=== PATIENT | male | born 1945 | race Caucasian/White ===

== ENCOUNTER 2018-11-07 09:55 | Inpatient (IN) | payer BC, OTHER ==
[~2018-11-07] VITALS: Ht 175.3 cm; Wt 90.5 kg
[~2018-11-07 09:55] MED LIST: AMLODIPINE BESY10 MG PO; CELEBREX 200 M200 MG PO; PERCOCET PO; PRILOSEC40 MG PO; SIMVASTATIN20 MG PO; THERA TEARS1 EAC1 OP; VITAMIN B-1100 M1 PO; VITAMIN D3400 UNI1 PO
[2018-11-07 10:05] VITALS: BP 124/68
[2018-11-07 10:55] LABS: HEMATOCRIT 45.2 % (42.0-52.0); MCH 32.2 pg (26.0-34.0); MCHC 35.3 g/dL (28.0-37.0); MCV 91.2 fL (80.0-100.0); PLATELET COUNT 269 thou/uL (150-400); RBC 4.96 mil/uL (4.50-6.00); WBC 8.4 thou/uL (4.0-11.0)
[2018-11-07 10:59] LABS: ANION GAP 10 mmol/L (7-16); BUN 30 mg/dL (7-18); CHLORIDE 93 mmol/L (98-107); CO2 29 mmol/L (21-32); CREATININE 1.5 mg/dL (0.7-1.3); GLUCOSE 128 mg/dL (74-106); SODIUM 132 mmol/L (136-145)
[2018-11-07 11:07] LABS: ALBUMIN 4.3 g/dL (3.4-5.0); SGOT 23 U/L (15-37); SGPT 31 U/L (30-65); TOTAL BILIRUBIN 1.1 mg/dL (<0.1-1.0); TOTAL PROTEIN 8.3 g/dL (6.4-8.2); TROPONIN-I <0.06 ng/mL (<0.06)
[2018-11-07 11:43] LABS: ABSOLUTE NEUTROPHILS 5.9 thou/uL (1.4-8.2)
[2018-11-07 11:44] LABS: PLATELET ESTIMATE NORMAL
[2018-11-07] MEDS ORDERED: LEVOXYL25 MCG PO (12:32)
[2018-11-07] MEDS ORDERED: SYNTHROID125 MC1 PO (13:05)
[2018-11-07] MEDS ORDERED: COZAAR 25 MG TA25 M1 PO ×2 (13:06→14:05)
[2018-11-07] MEDS ORDERED: ATORVASTATIN CA40 MG PO (13:06)
[2018-11-07] MEDS ORDERED: CHLORTHALIDONE25 MG PO (13:06)
[2018-11-07] MEDS ORDERED: UNISOM SLEEPMEL25 MG PO (13:09)
[2018-11-07] MEDS ORDERED: VALACYCLOVIR (13:10)
[2018-11-07 14:44] VITALS: BP 175/86
--- NOTE | 2018-11-07 18:05 | EKG ---
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 : 1945 Requested By: Lina Reyes Order Number: [id number] MD: Erik Hadley Measurements Intervals [place] Rate: 73 P: 2 SC: 185 QRS: -12 QRSD: 94 T: 4 QT: 426 QTc: 470 Interpretive Statements Sinus rhythm Poor R wave progression Compared to ECG 09/25/2007 22:14:14 No significant change was found Electronically Signed On 11-07-2018 18:05:17 CDT by Erik Hadley [email or web address] ��������������������������������������������� <ELECTRONICALLY SIGNED> ���������������������������������������� By: Erik Hadley MD, [facility] ��������������������������������������������� 11/07/18 1805 1047 104 Erik Hadley MD, [facility] /EPI
--- NOTE | 2018-11-07 18:05 | EKG ---
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1945 Requested By: Lina Reyes Order Number: [id number] MD: Erik Hadley Measurements Intervals [place] Rate: 72 P: 16 MI: 171 QRS: -16 QRSD: 104 T: 0 QT: 413 QTc: 453 Interpretive Statements Sinus rhythm Abnormal R-wave progression, late transition Compared to ECG 09/25/2007 22:14:14 Sinus bradycardia no longer present Electronically Signed On 11-07-2018 18:04:59 CDT by Erik Hadley [email or web address] ��������������������������������������������� <ELECTRONICALLY SIGNED> ���������������������������������������� By: Erik Hadley MD, [facility] ��������������������������������������������� 11/07/18 1804 1002 1002 Erik Hadley MD, [facility] /EPI
--- NOTE | 2018-11-07 19:27 | NUR ---
ADM PT CAME IN FROM ER. PT ORIENTED TO ROOM. PROVIDER NOTIFIED, AWAITING FOR CALLBACK FOR PAIN MEDS.
[2018-11-07 19:43] VITALS: BP 158/80
--- NOTE | 2018-11-08 01:00 | NUR ---
PT SLEPT MOST OF THE NIGHT PT HAD MILD TREMORS DURING THE NIGHT NO ISSUES OVERNIGHT.
[2018-11-08 04:25] LABS: CALCIUM 8.8 mg/dL (8.5-10.1); CREATININE 1.3 mg/dL (0.7-1.3)
[2018-11-08 05:02] VITALS: BP 155/83
[2018-11-08 08:01] VITALS: BP 123/70
[2018-11-08 14:06] LABS: HIV ANTIBODY Non Reactive (Non Reactive)
[2018-11-08 16:33] VITALS: BP 154/86
--- NOTE | 2018-11-08 17:09 | NUR ---
ON-GOING ASSESSMENT: CM REVIEWED CHART AND MET WITH PATIENT AT THE BEDSIDE. PT REPORTS LIVING IN A HOUSE INDEPENDENTLY. PT REPORTS HE IS INDEPENDENT WITH ADLS AND AMBULATION. 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 PT REPORTS THAT HE IS FULLY INDEPENDENT WITH ADLS AND AMBULATION. PT HAS NOT HAD HH IN THE PAST NOR BEEN TO SNF. PT DOES NOT ANTICIPATE HAVING ANY NEEDS AT DISCHARGE.
--- NOTE | 2018-11-08 17:28 | HC ---
[facility] [place] [address] CONSULTATION Name: SONIA ALSTON Room #: 455-P [facility] IN M.R.#: [id number] Admission: 11/07/18 ������������������ Attend Phys: Eddie Reddy Discharge: ������������������ Date of : 45 Report #: [id number] THIS REPORT FOR: //name// CC: Wojciech Mauro DATE OF SERVICE: 11/07/2018 TYPE OF REPORT: Infectious diseases consultation. REASON FOR CONSULTATION: I was asked to evaluate concerning dermatomal zoster of his left base. HISTORY OF PRESENT ILLNESS: The patient is a 73-year old with a 3-week history of increased frontal headaches. Also, had left eye pain. Workup as an outpatient, failed to identify any pathology until he developed a rash first part of the week. Placed on valacyclovir. No fever, chills or sweats. Pain in his face and head has been persistent. He has had 3 episodes of involuntary tremors to his upper extremities. Onset was 2 days ago. He presented to [facility] Emergency Room with these complaints. CT scan of the head the patient reports was unremarkable. They gave him fluids and start him on antiviral therapy. His facial rash has progressed. It involves his left face, periorbital region and his scalp. This is markedly tender and hyperesthetic. He has had drainage from his left eye. Now presents to the Emergency Room for further evaluation. Again today, he had upper extremity tremors that lasted several minutes. These were not associated with chills, fever or sweats. His maximum temperature has been 99 degrees. He has had no change in mental status or syncopal episode. There has been no change in his vision. He saw the tool crib manager last week. In the Emergency Room, he had a fluorescein staining eye examination and pressure readings all of which were normal. He has had no facial weakness. He has had no ear pain or discomfort. He has had no loss of taste. He denies any HIV risk factors. He donated blood approximately 6 years ago. He has had no travel outside the [place]. He has had no history of cancer or immunosuppression. IMMUNIZATIONS: Up-to-date for influenza. Unclear about pneumococcal vaccination and he has not received a varicella vaccination. He did have chickenpox as a child. REVIEW OF SYSTEMS: He has had no cough or sputum production. No nausea, vomiting or diarrhea. No dysuria or frequency. A 10-point review of systems was otherwise negative other than what is described above. ALLERGIES: None known. [facility] [address] [place] [address] CONSULTATION Name: SONIA ALSTON Room #: 455-P [facility] IN [facility].#: [id number] Admission: 11/07/18 ������������������ Attend Phys: Eddie Reddy Discharge: ������������������ Date of : 45 Report #: [id number] MEDICATIONS: As noted on his MAR, which were reviewed, now on acyclovir. PAST MEDICAL HISTORY: Chronic bronchitis and asthma. PAST SURGICAL HISTORY: Knee surgery, right bunion surgery, tonsillectomy and hernia repair. FAMILY HISTORY: Noncontributory. SOCIAL HISTORY: Nonsmoker, no significant alcohol intake. 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 PHYSICAL EXAMINATION: VITAL SIGNS: Temperature 98.2, pulse 52, respiratory rate 18 and blood pressure 158/80. GENERAL: The patient is alert and cooperative and pleasant, in no acute distress, although he was fatigued in appearance. HEENT: Skin With left facial rash from the tip of his nose, periorbital region and up to his forehead on the left, including his scalp. There were no lesions to his ears. These areas were erythematous with small vesicular lesions. He was hyperesthetic to touch. He had conjunctivitis on the left. Pupil was equal, round and reactive to light. He had full range of motion and extraocular movements. No nystagmus. Strength in his face was normal. Mouth without lesion. Soft palate functioned well with no weakness. Tongue was strong. NECK: Supple with no stuck with no thyromegaly or mass. He had full range of motion in his neck. No palpable adenopathy other than small node in the left posterior auricular region. LUNGS: Clear. HEART: Regular, without murmur, gallop or rub. ABDOMEN: Soft and nontender. No hepatosplenomegaly or mass. He did have a ventral hernia. EXTREMITIES: Without clubbing, cyanosis or edema. NEUROLOGICAL: Further neurologic examination in addition to his cranial nerves, his strength in his upper and lower extremities are normal. Deep tendon reflexes in the upper and lower extremities were normal, sensation intact upper and lower extremities. Mood was normal. Mental status normal. LABORATORY DATA: Hemoglobin 16; WBC 8.4 and platelet count 269,000. Sodium 132, potassium 3, bicarbonate 29 and creatinine 1.5. AST 23 and ALT 31. Alkaline phosphatase 109. Bilirubin 1.1. RADIOLOGICAL DATA: Chest x-ray clear. IMPRESSION: A 73-year old with left facial dermatomal zoster with ongoing headaches and possible seizure activity. He has underlying hypertension, chronic kidney disease as far as I can tell by history, no immunodeficiency [address] [address] CONSULTATION Name: SONIA ALSTON Room #: 455-P ADM IN M.R.#: [id number] Admission: 11/07/18 ������������������ Attend Phys: Eddie Reddy Discharge: ������������������ Date of : 45 Report #: [id number] noted. RECOMMENDATIONS: We will give acyclovir. IV fluids. Follow renal function. May need to adjust his antiviral dosing pending followup creatinine. Narcotics for pain control. MRI scan of the brain and Neurology consultation. Contact precautions. Begin immune workup. ��������������������������������������������� <ELECTRONICALLY SIGNED> ���������������������������������������� By: Manjit Mauro MD ��������������������������������������������� 11/08/18 1728 [id number] [id number] Manjit Mauro MD /nt
[2018-11-08 20:07] VITALS: BP 120/63
--- NOTE | 2018-11-09 02:03 | NUR ---
PT STATES THAT BANG IS IMPROVING PT SLEPT MOST OF THE NIGHT PT USED CALL LIGHT EFFECTIVELY NO ISSUES OVERNIGHT.
[2018-11-09 04:55] VITALS: BP 101/53
[2018-11-09 05:17] LABS: CALCIUM 9.1 mg/dL (8.5-10.1); CREATININE 1.1 mg/dL (0.7-1.3); POTASSIUM 3.6 mmol/L (3.5-5.1)
[2018-11-09 07:57] VITALS: BP 127/80
--- NOTE | 2018-11-09 08:14 | H ---
[facility] [place] [address] HISTORY AND PHYSICAL Name: SONIA ALSTON Room #: 455-P ADM IN M.R.#: [id number] Admission: 11/07/18 ������������������ Attend Phys: Eddie Reddy Discharge: ������������������ Date of : 45 Report #: [id number] THIS REPORT FOR: //name// CC: Wojciech Mauro DATE OF SERVICE: 11/07/2018 CHIEF COMPLAINT: Facial rash and tremors. HISTORY OF PRESENT ILLNESS: The patient is a 73-year-old gentleman, is admitted to the Emergency Room with a rash, eye pain and tremors. It appears that week or two ago, he started complaining of left-sided headache and left eye pain. He was seen earlier in the week in the office and was diagnosed with shingles and started on antivirals. He said, however, 3 days ago the rash has worsened with increased pain, and there are new blisters around his eye. The pain was intensifying and went to [facility] ER 2 days ago. He had some involuntary body movements at that time, and he was seen and evaluated and discharged home. Yesterday, the tremor and shaking intensified again, and he was complaining of some nausea and then he was readmitted to the Emergency Room as he has failed outpatient treatment. PAST MEDICAL HISTORY: Asthma, hypertension and history of bronchitis. PAST SURGICAL HISTORY: He has had some orthopedic foot surgery. FAMILY HISTORY: Noncontributory. SOCIAL HISTORY: No chronic alcohol or tobacco use. ALLERGIES: None. MEDICATIONS: Celebrex, Synthroid, Lipitor, chlorthalidone, losartan, Benadryl. REVIEW OF SYSTEMS: As above. He complains of headache, left-sided facial pain. No shortness of breath, chest pain, abdominal pain, nausea, vomiting, diarrhea, constipation, dysuria, syncope. OBJECTIVE: VITAL SIGNS: Temperature 36.3, pulse 55, respirations 20, blood pressure 123/70, O2 sat 97% on room air. GENERAL: He is awake and alert, oriented to place and situation. HEENT: Reveals a blister type rash in the upper dermatome the left forehead above the eye. There are some lesions on his upper eyelid and then around his ear and in the scalp. LUNGS: Clear. HEART: Regular. [facility] [address] [place] [address] HISTORY AND PHYSICAL Name: SONIA ALSTON Room #: [address] [place] [address] IN M.R.#: [id number] Admission: 11/07/18 ������������������ Attend Phys: Eddie Reddy Discharge: ������������������ Date of : 45 Report #: [id number] ABDOMEN: Soft, normoactive bowel sounds. EXTREMITIES: No edema. NEUROLOGIC: Seems to have a facial twitch. There was 1-2, slight twitch movements of his hands; however, cranial nerves are intact. Speech is fluent. Gross examination of his vision in his left eye was intact. He was oriented to place and situation. LABORATORY DATA: Reviewed. Potassium was 3. CBC was unremarkable. ASSESSMENT: 1. Herpes zoster, left forehead. 2. New onset tremor. 3. Hypokalemia. 4. Hypertension. PLAN: Continue acyclovir and he has been assessed by Infectious Disease Service, Dr. Mauro. It appears Neurology will see him as well. If grossly does not seem to have any vision changes, I have asked the nurse to pursue ophthalmologic evaluation in the office as it does not appear that inpatient consult is available. Replacement of potassium and an MRI is planned. ��������������������������������������������� <ELECTRONICALLY SIGNED> ���������������������������������������� By: Russel Miller MD ��������������������������������������������� 11/09/18 0814 1007 1049 Russel Miller MD /nt
--- NOTE | 2018-11-09 11:08 | HC ---
[facility] [place] [address] CONSULTATION Name: SONIA ALSTON Room #: 455-P ADM IN M.R.#: [id number] Admission: 11/07/18 ������������������ Attend Phys: Eddie Reddy Discharge: ������������������ Date of : 45 Report #: [id number] THIS REPORT FOR: //name// CC: CHRISTINA Mauro NEUROLOGY CONSULTATION HISTORY OF PRESENT ILLNESS: The patient is a 73-year-old male who has been diagnosed with herpes zoster. The patient states that for approximately one month he has had a daily headache. This is mostly over the left eye and left side of his head. He also felt a pain in his eye and last week was seen by an engineering recruiter, but nothing could be found. On Sunday, the patient began to notice a lesion, which was in between his eyes and has now spread over his forehead and into his scalp just behind his ear. The patient states he has not noticed a change in his vision. He has had eye surgery before and has monovision, so he does not see equally well from both eyes. The patient has been to [facility] [place] [facility]. He had an episode of trembling of the extremities. It would last approximately 30 seconds, then go away for a minute or so and then returned. Apparently, he had extensive testing done at [facility] [place] [facility] and nothing could be found. The patient had these tremors on Sunday, Sunday, Sunday and . He has not had any tremors today. The patient states he was able to talk and was aware of what was going on around him when the tremors occurred. He has no idea what brought them on. PAST MEDICAL HISTORY: Chronic bronchitis, asthma, hypothyroidism, hyperlipidemia, hypertension. PAST SURGICAL HISTORY: Bilateral knee surgery, right bunionectomy, tonsillectomy, hernia repair. MEDICATIONS: Levothyroxine 125 mcg daily, Lipitor 40 mg daily, chlorthalidone 25 mg daily, Cozaar 25 mg daily, Benadryl 25 mg p.o. at bedtime p.r.n. insomnia. ALLERGIES: None. PHYSICAL EXAMINATION: VITAL SIGNS: Temperature is 36.3, pulse rate 65, respiratory rate 20, blood pressure 123/70, bedside pulse oximetry 97% on room air. NEUROLOGIC: Cranial nerves 2 through 12 are grossly intact. The patient has a rash in the distribution of the first division of the left trigeminal nerve. Motor exam demonstrates symmetrical strength in all 4 extremities. Plantar responses are flexor. Coordination reveals intact [id number]-fj-ztrg with the arms outstretched. The patient has a tremor, which is also present during emmmbk-yd-uglv testing. Gait was not tested. [address] [address] CONSULTATION Name: SONIA ALSTON Room #: 455-P [facility] IN M.R.#: [id number] Admission: 11/07/18 ������������������ Attend Phys: Eddie Reddy Discharge: ������������������ Date of : 45 Report #: [id number] LABORATORY WORK: Hematology: White blood cell count 8.4; hemoglobin 16; hematocrit 45.2; MCV 91.2; platelet count 267,000. Chemistry: Sodium 133, potassium 3, chloride 96, carbon dioxide 29, BUN 22, creatinine 1.3, GFR 54, glucose 104, calcium 88, total bilirubin 1.1, otherwise liver functions are normal. Total protein 8.3, albumin 4.3. Serum protein electrophoresis pending. HIV pending. IMAGING: MRI of the head has been ordered, but has not yet been done. IMPRESSION: This patient has essential tremor. Apparently, there are 6 siblings left in his family. He has a brother who is approximately 3 years older than he is who has a significant tremor and it is not Parkinson disease. Apparently, when his brother goes to drink from a glass, he has to use both hands to hold it. The patient states, however, that he never noticed a tremor until this week. He does not have a tremor of his head or his voice. However, on examination, the tremor that is present is consistent with essential tremor. It may be that he had a very mild tremor that he did not notice before or did not develop until he became ill and now it is more obvious. At this point, I would not give him any medication because once the herpes has improved, the tremor may improve as well. For the generalized tremors, these are not seizures. Jerking of all 4 extremities with intact consciousness is not consistent with a seizure disorder. For this, I would not recommend an EEG. It would be difficult to do given that he has lesions in the scalp as it is and by the description of the event is not consistent with a seizure. The patient has an MRI of the head ordered. I thank you for your kind referral of this patient and will continue to follow him with you. ��������������������������������������������� <ELECTRONICALLY SIGNED> ���������������������������������������� By: Brie Zapata DO ��������������������������������������������� 11/09/18 1108 1119 [id number] Brie Zapata DO /nt
[2018-11-09 15:34] VITALS: BP 122/73
--- NOTE | 2018-11-09 16:01 | NUR ---
PT STABLE THROUGHOUT SHIFT. PT MUCH STEADIER TODAY. FAMILY AT BEDSIDE, WILL CONTINUE TO MONITOR.
[2018-11-09 19:25] VITALS: BP 131/71
[2018-11-10 03:55] VITALS: BP 126/71
--- NOTE | 2018-11-10 06:45 | NUR ---
progress pt a/o x 4 reporting headache taking hydrocodone with some effect, iv antibiotics continue pt up ad hari gait steady voiding per urinal, shingles to right face in stages of healing starting to scab over. pt hopes to dc home today continue poc
[2018-11-10] MEDS ORDERED: LYRICA 50 MG50 MG PO (08:54)
[2018-11-10] MEDS ORDERED: MUCINEX600 MG PO (08:54)
[2018-11-10] MEDS ORDERED: VALTREX1000 MG PO (08:55)
[2018-11-10] MEDS ORDERED: CEFDINIR300 MG PO (08:55)
[2018-11-10 09:40] VITALS: BP 140/79
[2018-11-10 11:42] VITALS: BP 140/79
--- NOTE | 2018-11-10 12:51 | NUR ---
ASSUMED CARE AT 0700. PT A&OX4 PT ON ROOM AIR. PT GETS UP WITH STAND BY ASSIST AND IS STEADY ON FEET. PT STATES HE WAS GIVEN PAIN MED PRIOR TO SHIFT CHANGE AND THAT PAIN IS A CONTROLLED 2 ON THE NUMERIC SCALE. PT SPOKE WITH PHYSICIAN AND IS AWAITING D/C. RN WAS TOLD IN REPORT THAT PATIENT HAD VISABLE TREMORS WHEN HE WAS ADMITTED. NO TREMORS ARE VISABLE AT THIS TIME. PT VOIDS WITH OUT DIFFICULTY. PT STATED IN AM ASSESSMENT THAT HE WAS CONSTIPATED. PHYSICIAN WROTE ORDER FOR MOM AND SUPPOSITORY. BOTH GIVEN ORDERED AND PT HAD BM AFTER.
--- NOTE | 2018-11-10 13:29 | NUR ---
IV REMOVED AT THIS TIME. TELE MONITOR REMOVED AT THIS TIME. PT GIVEN D/C PAPERWORK AND PRESCRIPTIONS ALONG WITH PRESCRIPTION CARE NOTES. PT STATES NO QUESTIONS AT THIS TIME.
[2018-11-10 13:50] VITALS: BP 140/79
[2018-11-11 17:07] LABS: GLOBULIN TOTAL 3.1 g/dL (2.2-3.9); M-SPIKE Not Observed g/dL (Not Observed)
--- NOTE | 2018-11-12 11:13 | D ---
[facility] [place] [address] DISCHARGE SUMMARY Name: SONIA ALSTON Room #: 455-P [facility] IN M.R.#: [id number] Admission: 11/07/18 ������������������ Attend Phys: Eddie Reddy Discharge: 11/10/18 ������������������ Date of : 45 Report #: [id number] THIS REPORT FOR: //name// CC: Wojciech Mauro DATE OF SERVICE: 11/10/2018 FINAL DIAGNOSES: 1. Acute herpes zoster virus of the left forehead. 2. Postherpetic neuralgia. 3. Hypertension. 4. Hypokalemia. HOSPITAL COURSE: The patient was admitted with headache and left frontal scalp pain. He was diagnosed with acute zoster infection. IV antivirals were ordered. MRI of the brain was unremarkable. Neurology saw him and tremor resolved. There is no other pathologic finding there. ID followed his course. MRI did reveal some sinusitis and oral antibiotics were ordered. With 3 days of treatment, his pain and headache symptoms improved significantly and tremor resolved. PHYSICAL EXAMINATION: On the day of discharge: GENERAL: He was awake and alert. VITAL SIGNS: Stable. LUNGS: Clear. HEART: Regular. ABDOMEN: Soft, normoactive bowel sounds. EXTREMITIES: No edema. HEENT: His left upper forehead revealed pinkish scattered rash and into this hairline. There were 2 dry scabbed areas over the left eyebrow, but no visible blisters. Potassium replacement was ordered as well. DISPOSITION: He is discharged to home with diet and activity as tolerated, resume all his home medications. He has hydrocodone for pain, Lyrica 50 mg b.i.d. for 2 weeks, Valtrex 1000 mg t.i.d. for 1 week, Omnicef 300 mg a day for 5 days for sinusitis, Mucinex b.i.d. for a week for sinusitis. Follow up with Dr. Mauro in 10-14 days. ��������������������������������������������� <ELECTRONICALLY SIGNED> ���������������������������������������� By: Russel Miller MD ��������������������������������������������� 11/12/18 1113 0912 1144 Russel Miller MD /nt
== END 2018-11-10 18:00 | disposition home or self-care (01) | DRG 596 ==
LOC: ER 09:55 → EROBS 12:08 → 4W 12:08
PROVIDERS: Internal Medicine Geriatric Medicine; Nurse Practitioner Family; Specialist; ADMIT Internal Medicine
DX: B02.9 Zoster without complications (principal); N17.9 Acute kidney failure, unspecified; E87.1 Hypo-osmolality and hyponatremia; G25.0 Essential tremor; B02.29 Other postherpetic nervous system involvement; E87.6 Hypokalemia; N18.9 Chronic kidney disease, unspecified; I12.9 Hypertensive chronic kidney disease with stage 1 through stage 4 chronic kidney disease, or unspecified chronic kidney disease; E78.5 Hyperlipidemia, unspecified; J32.9 Chronic sinusitis, unspecified; E03.9 Hypothyroidism, unspecified; J45.909 Unspecified asthma, uncomplicated; Z79.899 Other long term (current) drug therapy
CPT/HCPCS: 10045

== ENCOUNTER → 2019-10-30 | Outpatient (CLI) | payer OTHER ==
[~2019-10-30] MED LIST changes: +ATORVASTATIN CA40 MG PO; +CEFDINIR300 MG PO; +CHLORTHALIDONE25 MG PO; +COZAAR 25 MG TA25 M1 PO; +LEVOXYL25 MCG PO; +LYRICA 50 MG50 MG PO; +MUCINEX600 MG PO; +SYNTHROID125 MC1 PO; +UNISOM SLEEPMEL25 MG PO; +VALACYCLOVIR; +VALTREX1000 MG PO
== END ==
LOC: SJCVC 09:21
DX: R55 Syncope and collapse (principal); E78.5 Hyperlipidemia, unspecified; K21.9 Gastro-esophageal reflux disease without esophagitis; I10 Essential (primary) hypertension; E03.9 Hypothyroidism, unspecified; Z79.899 Other long term (current) drug therapy

== ENCOUNTER → 2021-06-01 | Outpatient (CLI) | payer OTHER, MEDICARE | LOC: CAT 10:34 | PROVIDERS: ATTEND Surgery | DX: K42.9 Umbilical hernia without obstruction or gangrene (principal); K40.20 Bilateral inguinal hernia, without obstruction or gangrene, not specified as recurrent; K57.30 Diverticulosis of large intestine without perforation or abscess without bleeding; I70.0 Atherosclerosis of aorta; R10.31 Right lower quadrant pain ==

== ENCOUNTER → 2021-06-01 | Outpatient (CLI) | payer OTHER, MEDICARE | LOC: SJCVC 12:59 | PROVIDERS: ATTEND Internal Medicine | DX: R94.31 Abnormal electrocardiogram [ECG] [EKG] (principal); I10 Essential (primary) hypertension; E78.5 Hyperlipidemia, unspecified; I49.1 Atrial premature depolarization; I49.9 Cardiac arrhythmia, unspecified; K21.9 Gastro-esophageal reflux disease without esophagitis; E03.9 Hypothyroidism, unspecified; B02.9 Zoster without complications; Z79.82 Long term (current) use of aspirin; Z79.899 Other long term (current) drug therapy; Z72.89 Other problems related to lifestyle; Z82.49 Family history of ischemic heart disease and other diseases of the circulatory system; Z88.5 Allergy status to narcotic agent ==

== ENCOUNTER 2021-06-21 08:20 | Day surgery (SDC) | payer OTHER, MEDICARE ==
[~2021-06-21] VITALS: Ht 175.3 cm; Wt 86.2 kg
[~2021-06-21 08:20] MED LIST changes: +ASPIRIN EC81 M1 PO; +CELEXA 20 MG TA20 MG PO; +LOSARTAN POTASS50 MG PO; +PROTONIX 20 MG20 MG PO; +ROSUVASTATIN CA20 MG PO; +SYMBICORT160 MCG/4. INH; +TIROSINT125 MCG PO
[2021-06-21 09:04] VITALS: BP 165/91
[2021-06-21 09:42] LABS: CALCIUM 8.6 mg/dL (8.5-10.1); CREATININE 1.2 mg/dL (0.7-1.3)
[2021-06-21] MEDS ORDERED: HYDROCODON-ACE1 EAC7 PO (14:03)
[2021-06-21 14:18] VITALS: BP 165/91
--- NOTE | 2021-06-24 13:56 | O ---
[facility] [place], [place] [address] OPERATIVE REPORT Name: SONIA ALSTON Room #: DEP [facility].#: [id number] Admission: 06/21/21 Attend Phys: Hakan Salazar MD Discharge: 06/21/21 Date of : 45 Report #: [id number] THIS REPORT FOR: cc: Wojciech Mauro MD,Hakan Solitario MD, MD ~ cc: Jean Carlos Mauro MD DATE OF SERVICE: 06/21/2021 PREOPERATIVE DIAGNOSES: 1. Recurrent right inguinal hernia. 2. Left inguinal hernia. 3. Umbilical hernia. POSTOPERATIVE DIAGNOSES: 1. Right recurrent direct inguinal hernia. 2. Left indirect inguinal hernia with large cord lipoma. 3. Umbilical hernia. SURGEON: Hakan Salazar MD COMPLICATIONS: None. BLOOD LOSS: 5 mL ANESTHESIA: General. DESCRIPTION OF PROCEDURE: With the patient under general anesthesia, abdomen was prepped and draped in sterile fashion. Ashton catheter was placed prior to this. IV antibiotic was also administered. Timeout was performed. A transverse incision was made adjacent to the umbilicus and carried about midway through the umbilicus in a semicircular fashion. The anterior fascia over the right side was identified. Rectus fascia was identified. This was incised transversely. The muscle was spread. Space between the muscle and the posterior fascia was bluntly dissected inferiorly. Origin balloon trocar was placed through the space. A 5 mm trocar was placed under visualization into the properitoneal space. Using cautery and blunt dissection, the properitoneal space was opened. There was a branch coming off the inferior epigastric vessel more cephalad through the 5 mm trocar. This was preserved from harm. The properitoneal space was opened up. There was a suggestion of a right direct inguinal hernia. The inferior epigastric vessel was identified on the right side. The abdominal wall was opened up laterally. A second 5 mm trocar was placed here. The patient's pubic bone was identified. Omid's ligament was identified and cleaned off. Bladder had a catheter in and was preserved from harm. There was no direct defect on the left. There was an indirect defect on [address] [address] OPERATIVE REPORT Name: SONIA ALSTON Room #: DEP [facility] M.R.#: [id number] Admission: 06/21/21 Attend Phys: Hakan Salazar MD Discharge: 06/21/21 Date of : 45 Report #: [id number] the left. A small indirect sac. There were 2 large lipomas surrounding the cord. This made the internal ring markedly dilated. This was all dissected out. The cord was skeletonized. The vessels of the cord was preserved. Attention was then placed on the right side. The patient had a right direct defect. The defect is about 1.5 cm. There is a lobule of fat that is stuck inside. This was reduced. The fascial defect was then found. This was medially over the pubic tubercle. The dissection was then also carried out laterally over the internal ring. There was a cord lipoma, but no indirect sac. The cord on the right side was skeletonized. Both sides were cleaned off. A large left 3DMax lightweight mesh was placed. This was seated and then opened up well. Superolaterally, it was tacked to the abdominal wall with SorbaFix, inferomedially tacked to the Omid's ligament and superomedially tacked to the rectus muscle. A right sided 3DMax large mesh was then used. This was also placed through the origin trocar opened in the properitoneal space. This covered the direct defect well. It also covered the internal ring. The fat that was freed from the defects were excluded from the wall by the mesh. The mesh was tacked on the right side to the abdominal wall superolaterally and inferomedially to Omid's ligament and then superomedially to the rectus muscle. Both sides covered up well. Slight overlap was seen. CO2 was evacuated. Trocars removed. Incision underneath the umbilicus was then carried further underneath the umbilicus. The patient had a large umbilical hernia. The superior fascia was quite thin. The defect is about 3 cm. The hernia sac was quite thin. This was opened and then once it was freed from the overlying skin, the peritoneum was closed. Properitoneal space was then dissected free. Care was taken not to further open the peritoneum, which is pretty thin laterally. A well-formed space was obtained. The tissue pretty well. A large Ventralex patch was then placed in the properitoneal space. The fascia edges were trimmed and then 0 Prolene suture was used to close the fascial defect in a horizontal mattress fashion. Four separate sutures were used. The fascia came together well. The strap was sewn in with a Prolene suture in a horizontal mattress fashion. The strap was then cut at the fascial level. Skin of the umbilicus was then tacked down to the fascia with 4-0 PDS. Subcutaneous tissue was closed with 4-0 PDS. Skin at this incision and also the two 5 mm trocar was closed with 5-0 PDS. Steri-Strip, Band-Aids applied to the trocar site. Steri-Strips, 4 x 4, Op-Site used for dressing of the umbilicus incision. The patient tolerated the procedure well. The patient was taken to the recovery room. <ELECTRONICALLY SIGNED> By: Hakan Salazar MD 06/24/21 [id number] Hakan Salazar MD /nt
== END 2021-06-21 15:55 | disposition home or self-care (01) ==
LOC: OR 08:20 → TBA 08:21 → OR 13:48
PROVIDERS: Student in an Organized Health Care Education/Training Program; ATTEND Surgery
DX: K40.91 Unilateral inguinal hernia, without obstruction or gangrene, recurrent (principal); K40.90 Unilateral inguinal hernia, without obstruction or gangrene, not specified as recurrent; D17.6 Benign lipomatous neoplasm of spermatic cord; K42.9 Umbilical hernia without obstruction or gangrene; I10 Essential (primary) hypertension; J42 Unspecified chronic bronchitis; E03.9 Hypothyroidism, unspecified; E78.00 Pure hypercholesterolemia, unspecified; K21.9 Gastro-esophageal reflux disease without esophagitis; F32.9 Major depressive disorder, single episode, unspecified; G47.30 Sleep apnea, unspecified; Z98.890 Other specified postprocedural states; Z79.899 Other long term (current) drug therapy; Z20.822 Contact with and (suspected) exposure to COVID-19; Z79.82 Long term (current) use of aspirin
CPT/HCPCS: 50010; 50101; 50411; 50455; 50507; 50555; 50621; 50848; 52265; 53065; 53307; 56525; 56526; 58574; 62110; 62900; 65131; 70005